=== PATIENT | female | born 1990 | race African-American/Black ===

== ENCOUNTER 2017-04-27 15:18 | Emergency (ER) | payer SELFPAY ==
[~2017-04-27] VITALS: Ht 177.8 cm; Wt 59.0 kg
[2017-04-27 15:20] VITALS: BP 137/81
--- NOTE | 2017-04-27 15:44 | NUR ---
xray in bedside
--- NOTE | 2017-04-27 15:48 | NUR ---
patient refused tylenol. Dr Reed made aware.
[2017-04-27] MEDS ORDERED: ACETAMINOPHEN 325 MG TABLET PO ONE (16:00)
--- NOTE | 2017-04-27 16:11 | NUR ---
[facility] AT BEDSIDE TO SPEAK WITH PATIENT
--- NOTE | 2017-04-27 16:11 | NUR ---
PT. VERBALIZED UNDERSTANDING OF AFTERCARE INSTRUCTIONS.Patient discharged to home in stable condition. Written and verbal after care instructions given. Patient verbalizes understanding of instruction.
== END 2017-04-27 16:12 | disposition home or self-care (01) ==
LOC: ER 15:19
DX: M54.2 Cervicalgia (principal); M54.6 Pain in thoracic spine; F10.10 Alcohol abuse, uncomplicated; V43.52XA Car driver injured in collision with other type car in traffic accident, initial encounter; Y93.89 Activity, other specified; Y92.89 Other specified places as the place of occurrence of the external cause; Y99.8 Other external cause status
CPT/HCPCS: 99283; A4606; Z7610